=== PATIENT | female | born 1950 | race African-American/Black ===

== ENCOUNTER 2017-01-16 04:28 | Inpatient (IN) ==
--- NOTE | 2017-01-16 05:14 | Emergency Department Note ---
Arrival - Arrival Chief Complaint: GI Bleed/Rectal ED Nursing Triage Note: Pt arrives via ems from home with complaints of GI Bleed that started at 0300 this morning. Pt states that she got up to have a bowel movement and noticed bright red blood. Pt complains of lower abd pain prior to being given Normal Saline while en route to ed. Pt has history of Gastric ulcer. Mode of Arrival: Stretcher Time Seen by Provider: 01/16/17 04:47 - History of Present Illness HPI Narrative: This is a 66-year-old female of descent with a history of nonischemic cardiomyopathy peptic ulcer disease with gastrointestinal bleeding who presents with bright red blood per rectum which she noticed when she went to the bathroom. Rectal examination reveals external hemorrhoids and stool cris mixed with elizabeth blood. The patient has some left lower quadrant pain but the abdominal exam is nonsurgical. Date of Last Menstrual Period: hyster Allergies/Adverse Reactions: Allergies Allergy/AdvReac Type Severity Reaction Status Date / Time No Known Allergies Allergy Verified 11/19/16 12:06 Home Medications: Home Medications Medication Instructions Recorded Confirmed Type Atorvastatin [Lipitor] 10 mg PO DAILY 11/17/16 01/16/17 History Carvedilol [Coreg] 12.5 mg PO BID 11/17/16 01/16/17 History Lisinopril 10 mg PO DAILY 11/17/16 01/16/17 History Omeprazole 20 mg PO DAILY 11/17/16 01/16/17 History metFORMIN [Glucophage] 1,000 mg PO BID W/MEALS 11/17/16 01/16/17 History raNITIdine HCl [Ranitidine HCl] 150 mg PO DAILY 11/17/16 01/16/17 History Multivitamin [Multivitamins] 1 each PO DAILY 11/19/16 01/16/17 History Review of System - Review of System Constitutional: Absent: fever, night sweats Eyes: Absent: redness, vision change Head/Ears/Nose/Throat: Absent: epistaxis, nasal drainage Respiratory: Absent: respiratory distress, wheezing Cardiovascular: Absent: dyspnea on exertion, orthopnea, edema Gastrointestinal: Present: abdominal pain, melena. Absent: nausea, vomiting, constipation, hematemesis Genitourinary female: Absent: dysuria, frequency Musculoskeletal: Absent: joint swelling, lower back pain, leg pain, neck pain Skin: Absent: change in color, pruritus Neurological: Absent: numbness, paresthesias, confusion Psychiatric: Absent: anxiety, depression Endocrine: Absent: heat intolerance, polydipsia, polyuria Hematological/Lymphatic: Absent: easy bruising, lymphadenopathy Allergic/Immunologic: Absent: urticaria, itchy eyes Medical,Surgical,& Family Hx - Medical History Cardio: History of: Hypertension Neurology: No history of: Seizures Endocrine: History of: Diabetes Mellitus (NIDDM), Dyslipidemia Gastrointestinal: History of: GERD, GI Problems (Gastric ulcer) - Surgical History Cardiac Surgeries: Sugical HX of: Cardiac Catheterization Reproductive Surgeries: Surgical HX of;: Hysterectomy - Social History Smoking Status: Never smoker Frequency of Alcohol Use: None Type of Drug Use: None Exam Vital Signs: Vital Signs Temperature 98.4 F 01/16/17 04:28 Pulse Rate 77 01/16/17 05:37 Respiratory Rate 17 01/16/17 05:37 Blood Pressure 119/67 01/16/17 05:37 O2 Sat by Pulse Oximetry 100 01/16/17 05:37 - General General appearance: alert - Eye Eye exam: Present: PERRL, EOMI - ENT ENT exam: Present: normal exam, normal oropharynx - Neck Neck exam: Present: normal inspection, full ROM - Chest Chest inspection: Present: normal inspection, symmetric chest wall rise - Respiratory Respiratory exam: Present: normal lung sounds bilaterally - Cardiovascular Cardiovascular exam: Present: regular rate, normal rhythm - Abdominal Exam Abdominal exam: Present: soft, normal bowel sounds - Rectal Exam Rectal exam: Present: heme (+) stool, bloody stool, hemorrhoids - Extremities Exam Extremities exam: Present: normal inspection, full ROM - Back Exam Back exam: Present: normal inspection, full ROM - Neurological Exam Neurological exam: Present: alert, oriented X3, CN II-XII intact - Psychiatric Psychiatric exam: Present: normal affect, normal mood - Skin Skin exam: Present: warm, dry Course Course Narrative: The patient's hemoglobin dropped from 11 to 8 and she has a history of peptic ulcer disease with bleeding. Therefore it seems reasonable that she should be admitted to the hospital for monitoring her hemoglobin and hematocrit. The case was discussed with the hospitalist who agreed to admit the patient. Results - Labs CBC & BMP: 01/16/17 04:44 01/16/17 04:44 Disposition Clinical Impression: GI bleed Disposition: Still a Patient Additional Instructions: The patient's hemoglobin dropped from 11-8 and has a history of gastric ulcers with bleeding therefore it seems reasonable patient should be admitted to the hospital for monitoring of her hemoglobin and hematocrit. The case was discussed with hospitalist who agreed to admit the patient.
[2017-01-16 05:21] LABS: Basophils % 0.2 % (0.0-0.8); Eosinophils # 0.1 10*3/uL (0.0-0.87); Eosinophils % 0.6 % (0.00-10.9); Hematocrit 28.9 VOL% (35.7-47.0); Hemoglobin 8.9 GM/DL (12.0-16.0); Immature Granulocytes % 0.5 %; Immature Granulocytes Absolute 0.09 #; Mean Corpuscular HGB Conc 30.8 GM/DL (32-36); Mean Corpuscular Hemoglobin 24 PG (27-34); Mean Corpuscular Volume 77.7 FL (87-102); Mean Platelet Volume 9.9 FL (9.6-12.0); Monocytes % 5.9 % (1.7-12.7); Neutrophils # 14.7 10*3/uL (1.4-7.4); Neutrophils % 86.8 % (38.7-73.9); Platelet Count 264 T/CUMM (130-400); Red Blood Count 3.72 MC/CUMM (3.8-5.5); Red Cell Distribution Width 17.9 % (9.3-17.3)
[2017-01-16 05:47] LABS: Albumin 2.9 G/DL (3.4-5.0); Bilirubin,Total 1.6 MG/DL (0.2-1.0); Calcium 8.3 MG/DL (8.5-10.1); Osmolality,Calculated 292.3 MOS/KG (273-304); Potassium 4.4 MMOL/L (3.5-5.1)
--- NOTE | 2017-01-16 06:28 | Hospitalist History & Physical ---
History of Present Illness Chief complaint: bloody bowel movement History of present illness: Ms. Victor is a 66 year old female with PMH significant for PUD, DM, GERD, HTN , dyslipidemia, and NICM ([facility]: 11/19/16: non obstructive CAD). She presents to the ER with complaints of a bloody bowel movement she had early this morning. She states that she woke up with periumbilical pain and had to have a bowel movement. She noted the blood. She also experienced some lightheadness after having the bowel movement. Bowel movement was normal. She has been having normal bowel movements. After defecation, the abdominal pain went away. She states that she had similar bleeding in 2014 and it was 2nd to gastric ulcers. She sees GI at [facility]. She does not recall the GI specialist's name. She denies any melena/NSAID use/SOB/CP/fevers/chills/n,v/weight loss. ER physician noted blood in the rectum. Home Medications Medication Instructions Recorded Confirmed Type Atorvastatin [Lipitor] 10 mg PO DAILY 11/17/16 01/16/17 History Carvedilol [Coreg] 12.5 mg PO BID 11/17/16 01/16/17 History Lisinopril 10 mg PO DAILY 11/17/16 01/16/17 History Omeprazole 20 mg PO DAILY 11/17/16 01/16/17 History metFORMIN [Glucophage] 1,000 mg PO BID W/MEALS 11/17/16 01/16/17 History raNITIdine HCl [Ranitidine HCl] 150 mg PO DAILY 11/17/16 01/16/17 History Multivitamin [Multivitamins] 1 each PO DAILY 11/19/16 01/16/17 History Allergies Allergy/AdvReac Type Severity Reaction Status Date / Time No Known Allergies Allergy Verified 11/19/16 12:06 Medical,Surgical,& Family Hx - Medical History Cardio: History of: Hypertension Neurology: No history of: Seizures Endocrine: History of: Diabetes Mellitus (NIDDM), Dyslipidemia Gastrointestinal: History of: GERD, GI Problems (Gastric ulcer) - Surgical History Cardiac Surgeries: Sugical HX of: Cardiac Catheterization Reproductive Surgeries: Surgical HX of;: Hysterectomy - Family History Family History: Reports;: Family Cancer, Family Diabetes, Family Heart Disease, Family Hypertension - Social History Smoking Status: Never smoker Frequency of Alcohol Use: None Type of Drug Use: None - EENT Nose, mouth and throat: Absent: dysphagia - Cardiovascular Cardiovascular: Present: lightheadedness. Absent: chest pain at rest, chest pain with activity, dyspnea, palpitations - Respiratory Respiratory: Absent: cough, hemoptysis - Gastrointestinal Gastrointestinal: Present: abdominal pain, hematochezia. Absent: coffee ground emesis, dyspepsia, dysphagia, hematemesis, melena, nausea, vomiting - Neurological Neurological: Absent: abnormal gait, abnormal speech, headache(s) Exam - Constitutional Vitals: Period Temp Pulse Resp BP Sys/Mancilla Pulse Ox Last 24 Hr 98.4 F-98.4 F 77-85 17-22 119-135/67-82 96-100 General appearance: no acute distress, over weight - Head Head exam: Present: normal inspection, normocephalic - Eye Eye exam: Present: EOMI. Absent: conjunctival injection, scleral icterus Pupils: Present: DIAMOND - Respiratory Respiratory exam: Present: clear to auscultation bilaterally. Absent: rales, rhonchi, wheezes - Cardiovascular Cardiovascular exam: Present: regular rate and rhythm. Absent: diastolic murmur , systolic murmur - GI/Abdominal GI/Abdominal exam: Present: normal bowel sounds, soft, other (rectal exam deferred; ER physician noted blood in the rectum). Absent: distended, guarding , tenderness, rebound - Extremities Exam Extremities exam: Absent: edema - Neurological Exam Neurological exam: Present: alert, oriented X3 - Psychiatric Psychiatric exam: Present: normal affect, normal mood Results - Labs CBC & BMP: 01/16/17 04:44 01/16/17 04:44 - Impressions Patient is a 66 yo female who presents with BRBPR. Active Issues: 1. Acute hematochezia 2. GIB, suspect diverticular bleed 3. Acute blood loss anemia: her current HCT is 29. Back in 11/14/16, it was 35. 4. Microcytosis: suspect iron deficiency 5. Leukocytosis: likely 2nd to stress reaction. She has no fevers and no known source of infection 6. Comorbid conditions: history of DM, NICM, dyslipidemia, PUD. Patient is euvolemic Plan: admit; obtain iron studies; obtain PT/PTT; transfuse if hb<7 or <8 and symptomatic; PPI; serial h/h; consult GI; monitor wbc; obtain hba1c; control sugars; hold metformin and bp medications; await results of CTAP. Restart home medications as appropriate. Medications reconciled. DVT prophalaxis with SCDs. CODE: FULL The plan of care may be modified as more information becomes available. - Diagnostic Findings Procedure: CT Abdomen and Pelvis: pending
[2017-01-16] MEDS ORDERED: GLUCAGON 1 MG VIAL IM PRN (06:48)
[2017-01-16] MEDS ORDERED: DEXTROSE 50% 25 GM/50 ML VIAL IV PRN (06:48)
[2017-01-16 07:01] LABS: INR 1.1; PT Patient Result 11.8 SECS; Partial Thromboplastin Time 22.8 SECS (0-40)
[2017-01-16 07:10] LABS: % Iron Saturation 9.8 % (18-50); Ferritin 7.7 ng/ml (8-252)
[2017-01-16] MEDS: SODIUM CHLORIDE 0.9% 1,000 ML IV SCH ×2 (08:17→18:42)
[2017-01-16] MEDS: PANTOPRAZOLE 40 MG VIAL IV SCH ×2 (08:19→09:11)
[2017-01-16] MEDS ORDERED: INFLUENZA VIRUS VACCINE 0.5 ML SYRINGE IM ONE (08:29)
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
--- NOTE | 2017-01-16 10:04 | Event Note ---
Patient seen and examined in ICU 111. 66-year-old -[place] female with history of nonischemic cardiomyopathy, peptic ulcer disease, diabetes, admitted with left lower quadrant abdominal pain leukocytosis and rectal bleed. CT scan of the abdomen suggestive of acute diverticulitis. She is being started on IV Zosyn. GI has been consulted, will follow the recommendations. Will check a hemoglobin A1c as well as 2D echocardiogram. She is hemodynamically stable, will transfer to the floor. Plan of care discussed with the patient and RN. See orders.
--- NOTE | 2017-01-16 10:32 | Gastrointestinal Consult Note ---
<Albina Hi - Last Filed: 01/16/17 10:29> Assessment and Plan (1) GI bleed Status: Acute Assessment and plan: 01/16-sudden onset of bright red rectal bleeding early this morning without abdominal pain or other associated symptoms. Prior reported history of a patient of ulcers in the past 2-3 years with a GI bleed during that time. No NSAID or anticoagulant use. H&H holding at present time. CT of abdomen findings noted as below. Continue to monitor serial H&H. Clear liquid diet. Obtain records from [place] for prior endoscopy. Plan an addendum to follow Dr. Steinberg. Current Visit: Yes History of Present Illness Chief complaint: GI bleed History of present illness: Ms. Victor is a 66 year old female who was admitted to the hospital early this morning and after onset of rectal bleeding. Patient is a good historian therefore information is obtained from patient interview. Patient states she was in her usual state of health until 230 this morning when she woke up with the urge to have a bowel movement. She states she went to the bathroom and had a bowel movement however she noticed after this that she had a moderate amount of bright red blood in the commode however she denies passing any clots with this. Patient states that she became worried and came to the emergency room for further evaluation. Patient states that she has a history of rectal bleeding in 2013 as well as in 2014. She states she underwent upper and lower endoscopy at that time and was told that she had "ulcers". She cannot recall other findings of her endoscopy at that time. Patient states that she has not had any recent weight loss or abdominal pain. She denies any epigastric pain, dysphagia, dyspepsia. She does have a history of GERD and states this is fairly well controlled with Prilosec and Zantac. She also states she does have bloating when she eats however she has had this for a long time. Patient denies any NSAID use. She has not had any further rectal bleeding since 230 this morning. She denies any melena, nausea or vomiting associated with this. She has had have a blood transfusion in the past related to a GI bleed however has not had any since 2014. She states she has been on iron in the past due to iron deficiency anemia. Iron studies noted show iron 29, TIBC 295, saturation 9.8, ferritin 7.7. WBCs on admission noted at 17,000 however she is afebrile. H&H is stable at this time at 12/08. She has not received a blood transfusion since admission. CT of abdomen with IV contrast shows colonic diverticulosis with subtle fat stranding and sigmoid colon with questionable mild diverticulitis with mild wall thickening. Home Medications Medication Instructions Recorded Confirmed Type Atorvastatin [Lipitor] 10 mg PO DAILY 11/17/16 01/16/17 History Carvedilol [Coreg] 12.5 mg PO BID 11/17/16 01/16/17 History Lisinopril 10 mg PO DAILY 11/17/16 01/16/17 History Omeprazole 20 mg PO DAILY 11/17/16 01/16/17 History metFORMIN [Glucophage] 1,000 mg PO BID W/MEALS 11/17/16 01/16/17 History raNITIdine HCl [Ranitidine HCl] 150 mg PO DAILY 11/17/16 01/16/17 History Multivitamin [Multivitamins] 1 each PO DAILY 11/19/16 01/16/17 History Allergies Allergy/AdvReac Type Severity Reaction Status Date / Time No Known Allergies Allergy Verified 11/19/16 12:06 Medical,Surgical,& Family Hx - Medical History Cardio: History of: Hypertension Neurology: No history of: Seizures Endocrine: History of: Diabetes Mellitus (NIDDM), Dyslipidemia Gastrointestinal: History of: GERD, GI Problems (Gastric ulcer) - Surgical History Cardiac Surgeries: Sugical HX of: Cardiac Catheterization Reproductive Surgeries: Surgical HX of;: Hysterectomy - Family History Family History: Reports;: Family Cancer, Family Diabetes, Family Heart Disease, Family Hypertension - Social History Smoking Status: Never smoker Frequency of Alcohol Use: None Type of Drug Use: None 12 point system: reviewed and no additional remarkable complaints except as stated - Constitutional Constitutional: Present: as per HPI - EENT Eyes: Present: as per HPI Ears: Present: as per HPI Nose, mouth and throat: Present: as per HPI - Cardiovascular Cardiovascular: Present: as per HPI - Respiratory Respiratory: Present: as per HPI - Gastrointestinal Gastrointestinal: Present: as per HPI, abdominal pain, hematochezia - Genitourinary Genitourinary: Present: as per HPI - Musculoskeletal Musculoskeletal: Present: as per HPI - Neurological Neurological: Present: as per HPI - Psychiatric Psychiatric: Present: as per HPI - Endocrine Endocrine: Present: as per HPI - Hematologic/Lymphatic Hematologic/Lymphatic: Present: as per HPI Exam - Constitutional Vitals: Period Temp Pulse Resp BP Sys/Mancilla Pulse Ox Last 24 Hr 98.4 F-98.4 F 76-85 17-22 117-135/67-83 96-100 General appearance: normal weight, no acute distress - Head Head exam: Present: normal inspection, normocephalic - Eye Eye exam: Present: other (Lids and conjunctive are unremarkable). Absent: scleral icterus - ENT ENT exam: Present: normal exam, normal oropharynx - Neck Neck exam: Present: normal inspection - Respiratory Respiratory exam: Present: clear to auscultation bilaterally. Absent: rales, rhonchi, wheezes - Cardiovascular Cardiovascular exam: Present: regular rate and rhythm. Absent: diastolic murmur , JVD, systolic murmur - GI/Abdominal GI/Abdominal exam: Present: normal bowel sounds, soft. Absent: ascites, distended, mass, organomegaly, tenderness - Extremities Exam Extremities exam: Present: normal inspection, full ROM - Back Exam Back exam: Present: normal inspection - Neurological Exam Neurological exam: Present: alert, oriented X3 - Psychiatric Psychiatric exam: Present: normal affect, normal mood - Skin Skin exam: Present: normal color, warm, dry Results - Labs CBC & BMP: 01/16/17 04:44 01/16/17 04:44 Lab Results: I have reviewed the past 24 hour labs Quality Measures - VTE Contraindication to Pharmacological VTE Prophylaxis: Active Bleeding <Azael Steinberg - Last Filed: 01/16/17 15:56> History of Present Illness History of present illness: Ms. Victor is a 66 year old female Exam - Constitutional Vitals: Period Temp Pulse Resp BP Sys/Mancilla Pulse Ox Last 24 Hr 98 F-98.4 F 76-88 13-22 117-171/67-96 96-100 Results - Labs CBC & BMP: 01/16/17 04:44 01/16/17 04:44
[2017-01-16] MEDS ORDERED: PIPERACILLIN/TAZOBACTAM 3,375 MG in SODIUM CHLORIDE 0.9% 100 ML IV SCH (11:00)
[2017-01-16] MEDS: INSULIN LISPRO 100 UNIT/ML SUBCUT SCH ×2 (12:20→18:43)
[2017-01-16] MEDS: PIPERACILLIN/TAZOBACTAM 3,375 MG in SODIUM CHLORIDE 0.9% 100 ML IV SCH ×2 (12:20→20:24)
--- NOTE | 2017-01-16 19:39 | DUMMY REPORT TO COMPLETE ORDER ---
See report scanned to EMR
[2017-01-17] MEDS: INSULIN LISPRO 100 UNIT/ML SUBCUT SCH ×2 (01:18→06:56)
[2017-01-17] MEDS: SODIUM CHLORIDE 0.9% 1,000 ML IV SCH (04:05)
[2017-01-17] MEDS: PIPERACILLIN/TAZOBACTAM 3,375 MG in SODIUM CHLORIDE 0.9% 100 ML IV SCH ×3 (04:36→20:39)
[2017-01-17 05:12] LABS: Albumin 2.6 G/DL (3.4-5.0); Bilirubin,Total 1.3 MG/DL (0.2-1.0); Calcium 8.5 MG/DL (8.5-10.1); Magnesium 1.8 MG/DL (1.8-2.4); Osmolality,Calculated 286.7 MOS/KG (273-304); Potassium 4.2 MMOL/L (3.5-5.1); Thyroid Stimulating Hormone 0.283 uIU/ml (0.358-3.74); Total Protein 5.1 G/DL (6.4-8.3)
[2017-01-17 06:48] LABS: Basophils % 0.1 % (0.0-0.8); Eosinophils # 0.1 10*3/uL (0.0-0.87); Eosinophils % 0.7 % (0.00-10.9); Hematocrit 22.9 VOL% (35.7-47.0); Immature Granulocytes % 0.4 %; Immature Granulocytes Absolute 0.04 #; Lymphocytes # 2.4 10*3/uL (1.4-4.0); Lymphocytes % 25.6 % (21.3-54.2); Mean Corpuscular Hemoglobin 24 PG (27-34); Mean Corpuscular Volume 76.6 FL (87-102); Mean Platelet Volume 9.8 FL (9.6-12.0); Monocytes # 1.1 10*3/uL (0.11-0.8); Monocytes % 11.5 % (1.7-12.7); Neutrophils # 5.8 10*3/uL (1.4-7.4); Neutrophils % 61.7 % (38.7-73.9); Platelet Count 212 T/CUMM (130-400); Red Blood Count 2.99 MC/CUMM (3.8-5.5); Red Cell Distribution Width 18.4 % (9.3-17.3)
[2017-01-17 06:57] LABS: Hemoglobin 7.1 GM/DL (12.0-16.0); White Blood Count 9.4 T/CUMM (4-12)
[2017-01-17] MEDS ORDERED: SODIUM CHLORIDE 0.9% 250 ML IV PRN (08:23)
[2017-01-17] MEDS: PANTOPRAZOLE 40 MG VIAL IV SCH (08:51)
[2017-01-17] MEDS ORDERED: GLUCAGON 1 MG VIAL IM PRN (09:14)
[2017-01-17] MEDS ORDERED: DEXTROSE 50% 25 GM/50 ML VIAL IV PRN (09:14)
--- NOTE | 2017-01-17 09:44 | Hospitalist Progress Note ---
Assessment and Plan (1) Diverticulitis Status: Acute Assessment and plan: CT abdomen and pelvis noted changes consistent with diverticulitis. GI consultation on yesterday. We will continue intravenous antibiotics, protein pump inhibitors, and gentle rehydration. The patient is not a candidate for colonoscopy at this time due to the severity of her presenting symptoms. We appreciate the input from gastroenterology. We will monitor closely during the clinical encounter. Current Visit: Yes (2) Non-insulin dependent type 2 diabetes mellitus Status: Acute Assessment and plan: Hemoglobin A1c noted at 9.2. Spoke with patient in great detail regarding lab results and the need for dietary modifications. We will start Accu-Cheks with sliding scale coverage at this time. We will increase metformin at the time of discharge. Current Visit: Yes (3) GI bleed Status: Acute Assessment and plan: No further episodes of rectal bleeding noted. We will continue empiric antibiotics, gentle rehydration, and protein pump inhibitors as previously ordered. Current Visit: Yes Hospitalist: Subjective Interval history: Patient seen and examined; chart reviewed. No significant overnight events reported per staff. Transferred from ICU on yesterday. Hemoglobin/hematocrit noted at 7.1/22.9. Exam - Constitutional Vitals: Period Temp Pulse Resp BP Sys/Mancilla Pulse Ox Last 24 Hr 98 F-98.7 F 79-95 16-20 111-160/55-76 91-99 General appearance: normal weight, no acute distress - Head Head exam: Present: normal inspection, normocephalic, atraumatic - Eye Eye exam: Present: EOMI. Absent: conjunctival injection Pupils: Present: DIAMOND, normal accommodation - ENT ENT exam: Present: normal exam, normal external ear exam, normal oropharynx - Neck Neck exam: Present: normal inspection. Absent: lymphadenopathy, meningismus, tenderness, thyromegaly - Respiratory Respiratory exam: Present: clear to auscultation bilaterally. Absent: rales, rhonchi, stridor, wheezes - Cardiovascular Cardiovascular exam: Present: regular rate and rhythm. Absent: carotid bruit, diastolic murmur, gallop, JVD, rubs, systolic murmur - GI/Abdominal GI/Abdominal exam: Present: normal bowel sounds, tenderness (Diffuse left lower quadrant tenderness), soft - Extremities Exam Extremities exam: Present: normal inspection, normal capillary refill, full ROM. Absent: edema - Back Exam Back exam: Present: normal inspection - Neurological Exam Neurological exam: Present: alert, oriented X3, CN II-XII intact - Psychiatric Psychiatric exam: Present: normal affect, normal mood - Skin Skin exam: Present: normal color, warm, dry Results - Labs CBC & BMP: 01/17/17 06:22 01/17/17 03:05 Lab Results: I have reviewed the past 24 hour labs Quality Measures - VTE Contraindication to Pharmacological VTE Prophylaxis: Active Bleeding
[2017-01-17] MEDS: INSULIN REGULAR 100 UNIT/ML SUBCUT SCH ×3 (12:07→20:38)
[2017-01-17] MEDS: metFORMIN 500 MG TABLET PO SCH (17:29)
[2017-01-17] MEDS: CARVEDILOL 12.5 MG TABLET PO SCH (20:39)
[2017-01-18 06:28] LABS: Basophils % 0.4 % (0.0-0.8); Eosinophils # 0.2 10*3/uL (0.0-0.87); Eosinophils % 2.6 % (0.00-10.9); Hematocrit 30.4 VOL% (35.7-47.0); Hemoglobin 9.8 GM/DL (12.0-16.0); Immature Granulocytes % 1.2 %; Immature Granulocytes Absolute 0.09 #; Lymphocytes # 2.1 10*3/uL (1.4-4.0); Mean Corpuscular HGB Conc 32.2 GM/DL (32-36); Mean Corpuscular Hemoglobin 26 PG (27-34); Mean Corpuscular Volume 79.4 FL (87-102); Monocytes % 12.8 % (1.7-12.7); NRBC # 0.02 10*3/uL; Neutrophils # 4.3 10*3/uL (1.4-7.4); Platelet Count 219 T/CUMM (130-400); Red Blood Count 3.83 MC/CUMM (3.8-5.5); White Blood Count 7.7 T/CUMM (4-12)
[2017-01-18] MEDS: PIPERACILLIN/TAZOBACTAM 3,375 MG in SODIUM CHLORIDE 0.9% 100 ML IV SCH (06:35)
[2017-01-18 07:10] LABS: Albumin 2.9 G/DL (3.4-5.0); Bilirubin,Total 1.4 MG/DL (0.2-1.0); Calcium 8.6 MG/DL (8.5-10.1); Magnesium 1.8 MG/DL (1.8-2.4); Osmolality,Calculated 288.7 MOS/KG (273-304); Phosphorous 3.5 MG/DL (2.5-4.9); Total Protein 5.8 G/DL (6.4-8.3)
[2017-01-18] MEDS: CARVEDILOL 12.5 MG TABLET PO SCH (08:23)
[2017-01-18] MEDS: PANTOPRAZOLE 40 MG VIAL IV SCH (08:23)
[2017-01-18] MEDS: metFORMIN 500 MG TABLET PO SCH (08:23)
[2017-01-18] MEDS: INSULIN REGULAR 100 UNIT/ML SUBCUT SCH ×2 (08:24→12:25)
[2017-01-18] MEDS ORDERED: MULTIVITAMIN (CENTRUM) TABLET PO SCH (09:00)
[2017-01-18] MEDS ORDERED: LISINOPRIL 10 MG TABLET PO SCH (09:00)
--- NOTE | 2017-01-18 11:40 | Discharge Summary ---
<Anshu Ruiz - Last Filed: 01/18/17 11:38> Hospital Course - Hospital Course Hospital Course: This is a very pleasant 66-year-old female that presented to the ED at [facility] on the morning of January 16, 2017 for the evaluation of rectal bleeding. Patient has a medical history significant for hypertension, [id number] diabetes mellitus, nonischemic cardiomyopathy, dyslipidemia, gastroesophageal reflux disease, and peptic ulcer disease. The patient has a surgical history significant for cardiac catheterization and hysterectomy. The patient reported the onset of symptoms on the morning of presentation. The patient reported that she awaken with umbilical pain and had to have a bowel movement. She proceeded to get up and go to the bathroom and noticed bright red blood during defecation. In addition, she reported that she experience some lightheadedness shortly there after the bowel movement. She also reported that she experienced relief of abdominal pain shortly after defecation; however denied shortness of breath, chest pain, fever, chills, nausea vomiting, weight loss, and recent NSAID use. She reports an episode similar in nature in 2014 however it was attributed to gastric ulcers. She became alarmed after the incident prompting her to present to the ED at [facility] for further evaluation. The patient was assessed at the time of ED presentation. Labs were obtained which were significant for white blood cell count 17.0, hemoglobin 8.9, hematocrit 28.9, chloride 109, glucose 333, calcium 8.3, iron 29, percentage saturation 9.8, ferritin 7.7, total bilirubin 1.60, and hemoglobin A1c 9.2. CT abdomen and pelvis with contrast significant for colonic diverticulosis, septal fat stranding about the sigmoid colon which could possibly reflect mild diverticulitis, mild associated wall thickening. The patient was subsequently admitted to the hospitalist service for continuation of care. Due to the severity of the patient's presenting symptoms and comorbidities, the patient was placed in the critical care setting for observation. Gentle rehydration, protein pump inhibitors, pain management, DVT prophylaxis, and empiric antibiotics were initiated. A gastroenterology consultation was requested and evaluations were given. Empiric antibiotic coverage continued per gastroenterology recommendation. On January 17, 2017, the patient's hemoglobin and hematocrit was noted at 7.1/22.9. The patient was transfused 2 units packed red blood cells in the patient's hemoglobin and hematocrit improved and is noted at 9.8/30.4 today. The patient's condition gradually improved. The patient's condition is stable. She has experienced no significant overnight events. Today, we feel that she is indeed appropriate for discharge to follow with her primary care physician and electrician helper, Dr. Azael Steinberg as directed. The patient will be discharged home with instructions to start Flagyl 500 mg 3 times daily, Cipro 500 mg twice daily, ferrous sulfate 325 twice daily, and Colace 200 mg twice daily. I evaluated this patient and completed an independent history and physical examination. I coordinated care with JOSE DAVID Ramos. I agree with the documentation that she provides below. Patient seen and examined. No acute events overnight. Case discussed with nursing staff. Labs reviewed. Total discharge time for this patient, including dikc-[id number] time, clinical documentation, medication reconciliation, and discharge planning was 42 minutes. - Time spent with patient Time with patient DS: Less than 30 minutes Diagnosis - Discharge Diagnosis (1) Diverticulitis Status: Acute (2) Non-insulin dependent type 2 diabetes mellitus Status: Chronic (3) GI bleed Status: Resolved Specialty Discharge - Follow Up or Referrals - Speciality Discharge Instructions Hospitalist Instructions: Follow-up with primary care physician in 7-10 days after discharge. Follow with gastroenterology, Dr. Azael Steinberg in 3-4 weeks for diagnostic colonoscopy. Discharge Plan - Discharge Data Disposition: Disch To Home/Self Care Condition at Discharge: Stable Discharge Diet: advance to your usual diet Activity: resume usual activities as tolerated Hygiene: no restrictions Weight Bearing at Discharge: full weight bearing Driving: no restrictions Contact your physician if you experience:: fever over 101, Difficulty voiding, Redness or swelling, Nausea/Vomiting, Shortness of breath, Bleeding - Discharge Medications New metroNIDAZOLE TAB [Flagyl Cap/Tab] 500 mg PO TID #42 tablet Ferrous Sulfate 325 mg PO BID #60 tablet Ciprofloxacin Tab [Cipro Tab] 500 mg PO BID #28 tablet Docusate Sodium [Colace] 200 mg PO BID #60 capsule Continue Atorvastatin [Lipitor] 10 mg PO DAILY #30 Lisinopril 10 mg PO DAILY #30 Omeprazole 20 mg PO DAILY #30 raNITIdine HCl [Ranitidine HCl] 150 mg PO DAILY #30 Multivitamin [Multivitamins] 1 each PO DAILY Carvedilol [Coreg] 12.5 mg PO BID #60 Changed metFORMIN [Glucophage] 1,500 mg PO BID W/MEALS #90 - Follow Up or Referral - Forms/Instructions Exam - Constitutional Vitals: Period Temp Pulse Resp BP Sys/[place] Pulse Ox Last 24 Hr 98.0 F-99.0 F 73-92 16-21 131-163/59-87 94-99 General appearance: normal weight, no acute distress - Head Head exam: Present: normal inspection, normocephalic, atraumatic - Eye Eye exam: Present: EOMI. Absent: conjunctival injection Pupils: Present: DIAMOND, normal accommodation - ENT ENT exam: Present: normal exam, normal external ear exam, normal oropharynx - Neck Neck exam: Present: normal inspection. Absent: lymphadenopathy, meningismus, thyromegaly - Respiratory Respiratory exam: Present: clear to auscultation bilaterally. Absent: rales, rhonchi, stridor, wheezes - Cardiovascular Cardiovascular exam: Present: regular rate and rhythm. Absent: carotid bruit, diastolic murmur, gallop, JVD, rubs, systolic murmur - GI/Abdominal GI/Abdominal exam: Present: normal bowel sounds, soft - Extremities Exam Extremities exam: Present: normal inspection, normal capillary refill, full ROM. Absent: edema - Back Exam Back exam: Present: normal inspection - Neurological Exam Neurological exam: Present: alert, oriented X3, CN II-XII intact - Psychiatric Psychiatric exam: Present: normal affect, normal mood - Skin Skin exam: Present: normal color, warm, dry Discharge Results Labs on day of discharge: Labs from last 24 hours 01/18/17 01/18/17 01/18/17 11:34 06:46 05:51 WBC RBC Hgb Hct MCV MCH MCHC RDW Plt Count MPV Neut % (Auto) Lymph % (Auto) [place] % (Auto) Eos % (Auto) Baso % (Auto) Neut # (Auto) Lymph # (Auto) [place] # (Auto) Eos # (Auto) Baso # (Auto) Immature Gran % Nucleated RBC % Immature Gran # Nucleated RBCs # Immature Plt Fraction Sodium 145 Potassium 4.0 Chloride 111 H Carbon Dioxide 26 Anion Gap 12.0 BUN 5 L Creatinine 0.90 GFR Calculation 89 BUN/Creatinine Ratio 5.00 L Glucose 171 H POC Glucose 177 H 193 H Calculated Osmolality 288.7 Calcium 8.6 Phosphorus 3.5 Magnesium 1.8 Total Bilirubin 1.40 H AST 9 ALT 16 Alkaline Phosphatase 78 Total Protein 5.8 L Albumin 2.9 L Globulin 2.9 Albumin/Globulin Ratio 1.0 L Blood Type Antibody Screen Crossmatch Blood Bank Comment 01/18/17 01/17/17 01/17/17 05:51 20:18 17:41 WBC 7.7 RBC 3.83 D Hgb 9.8 L D Hct 30.4 L MCV 79.4 L MCH 26 L MCHC 32.2 RDW 18.0 H Plt Count 219 MPV 10.0 Neut % (Auto) 56.0 Lymph % (Auto) 27.0 [place] % (Auto) 12.8 H Eos % (Auto) 2.6 Baso % (Auto) 0.4 Neut # (Auto) 4.3 Lymph # (Auto) 2.1 [place] # (Auto) 1.0 H Eos # (Auto) 0.2 Baso # (Auto) 0.0 Immature Gran % 1.2 Nucleated RBC % 0.3 Immature Gran # 0.09 Nucleated RBCs # 0.02 Immature Plt Fraction 0.0 Sodium Potassium Chloride Carbon Dioxide Anion Gap BUN Creatinine GFR Calculation BUN/Creatinine Ratio Glucose POC Glucose 146 H 166 H Calculated Osmolality Calcium Phosphorus Magnesium Total Bilirubin AST ALT Alkaline Phosphatase Total Protein Albumin Globulin Albumin/Globulin Ratio Blood Type Antibody Screen Crossmatch Blood Bank Comment 01/17/17 06:19 WBC RBC Hgb Hct MCV MCH MCHC RDW Plt Count MPV Neut % (Auto) Lymph % (Auto) [place] % (Auto) Eos % (Auto) Baso % (Auto) Neut # (Auto) Lymph # (Auto) [place] # (Auto) Eos # (Auto) Baso # (Auto) Immature Gran % Nucleated RBC % Immature Gran # Nucleated RBCs # Immature Plt Fraction Sodium Potassium Chloride Carbon Dioxide Anion Gap BUN Creatinine GFR Calculation BUN/Creatinine Ratio Glucose POC Glucose Calculated Osmolality Calcium Phosphorus Magnesium Total Bilirubin AST ALT Alkaline Phosphatase Total Protein Albumin Globulin Albumin/Globulin Ratio Blood Type Cancelled Antibody Screen Cancelled Crossmatch See Detail Blood Bank Comment Cancelled DS: Provider Date of admission: 01/16/17 06:43 Primary care physician: Mavis Cantu Attending physician on admission: Adamaris Thomas MD Consults: 01/16/17 06:49 Consult to Physician [CONS] Routine Comment: GIB Consulting Provider: Azael Steinberg Consulting Provider Notified: Yes When should Consulting Provider be notified: In am Consult to Specialist Group: Gastroenterology Person Notified: SHERRON Date Notified: 01/16/17 Consult Notification Comment: ALREADY SEEN PT THIS AM 01/16/17 08:15 Consult to Dietitian [CONS] Routine Reason for Dietitian: Other Discharging clinician: Anshu Ruiz CNP <Les Andrews - Last Filed: 01/18/17 12:17> Hospital Course - Time spent with patient Time with patient DS: Greater than 30 minutes Diagnosis - Discharge Diagnosis (1) Hypertension Status: Chronic (2) GI bleed Status: Resolved (3) Diverticulitis Status: Acute (4) Non-insulin dependent type 2 diabetes mellitus Status: Chronic Discharge Plan - Forms/Instructions Additional Discharge Instructions: Follow-up with primary care physician in 1 week DS: Provider Expected date of discharge: 01/18/17
[2017-01-18 11:48] VITALS: BP 135/77
== END 2017-01-18 13:50 | disposition home or self-care (01) | DRG 378 ==
LOC: EDUNIT# → EDBD → N.ED 04:28 → N.ICU 06:43 → SUATTDRO 06:43 → N.ICU 07:13 → N.5E 18:25
PROVIDERS: ADMIT Hospitalist; ATTEND Family Medicine

== ENCOUNTER 2017-06-24 21:34 | Inpatient (IN) ==
[2017-06-24] MEDS ORDERED: PANTOPRAZOLE 40 MG VIAL IV STA (22:27)
[2017-06-24 23:04] LABS: Basophils % 0.1 % (0.0-0.8); Eosinophils # 0.1 10*3/uL (0.0-0.87); Eosinophils % 0.6 % (0.00-10.9); Hemoglobin 9.8 GM/DL (12.0-16.0); Immature Granulocytes % 0.5 %; Immature Granulocytes Absolute 0.07 #; Lymphocytes # 1.4 10*3/uL (1.4-4.0); Lymphocytes % 9.5 % (21.3-54.2); Mean Corpuscular HGB Conc 31.6 GM/DL (32-36); Mean Corpuscular Hemoglobin 29 PG (27-34); Mean Corpuscular Volume 90.1 FL (87-102); Mean Platelet Volume 9.8 FL (9.6-12.0); Monocytes # 1.1 10*3/uL (0.11-0.8); Monocytes % 7.3 % (1.7-12.7); Neutrophils # 12.3 10*3/uL (1.4-7.4); Platelet Count 192 T/CUMM (130-400); Red Blood Count 3.44 MC/CUMM (3.8-5.5); Red Cell Distribution Width 17.1 % (9.3-17.3)
[2017-06-24 23:13] LABS: INR 1.2; PT Patient Result 12.3 SECS; Partial Thromboplastin Time 22.3 SECS (0-40)
[2017-06-24 23:26] LABS: Albumin 2.4 G/DL (3.4-5.0); Bilirubin,Total 0.8 MG/DL (0.2-1.0); Osmolality,Calculated 295.8 MOS/KG (273-304); Potassium 4.4 MMOL/L (3.5-5.1); Total Protein 4.9 G/DL (6.4-8.3); Troponin I Only 0.019 NG/ML (0.00-0.045)
[2017-06-24] MEDS ORDERED: SODIUM CHLORIDE 0.9% 1,000 ML IV PRN ×2 (23:32→23:35)
[2017-06-25] MEDS ORDERED: ALBUTEROL 2.5 MG/3 ML NEB RESP TX PRN (01:01)
[2017-06-25] MEDS ORDERED: ACETAMINOPHEN 325 MG TABLET PO PRN (01:01)
[2017-06-25] MEDS ORDERED: ONDANSETRON 4 MG/2 ML VIAL IV PRN (01:01)
[2017-06-25] MEDS ORDERED: SODIUM CHLORIDE 0.9% 1,000 ML IV PRN (01:09)
[2017-06-25] MEDS ORDERED: GLUCAGON 1 MG VIAL IM PRN (01:11)
[2017-06-25] MEDS ORDERED: DEXTROSE 50% 25 GM/50 ML VIAL IV PRN (01:11)
[2017-06-25] MEDS ORDERED: PANTOPRAZOLE 40 MG VIAL IV ONE (01:50)
[2017-06-25 05:21] LABS: Hematocrit 31.6 VOL% (35.7-47.0); Hemoglobin 10.3 GM/DL (12.0-16.0)
[2017-06-25 05:58] LABS: Calcium 7.9 MG/DL (8.5-10.1); Osmolality,Calculated 290.1 MOS/KG (273-304); Potassium 4.4 MMOL/L (3.5-5.1)
[2017-06-25] MEDS: PANTOPRAZOLE 40 MG VIAL IV SCH (09:25)
[2017-06-25 09:27] LABS: Hematocrit 30.6 VOL% (35.7-47.0); Hemoglobin 10.1 GM/DL (12.0-16.0)
[2017-06-25] MEDS: INSULIN REGULAR 100 UNIT/ML SUBCUT SCH ×4 (09:27→21:46)
[2017-06-25] MEDS: FAMOTIDINE 20 MG TABLET PO SCH ×2 (13:44→21:46)
[2017-06-25 15:14] LABS: Hematocrit 28.5 VOL% (35.7-47.0); Hemoglobin 9.5 GM/DL (12.0-16.0)
[2017-06-26 05:53] LABS: Hemoglobin 8.3 GM/DL (12.0-16.0)
[2017-06-26] MEDS: INSULIN REGULAR 100 UNIT/ML SUBCUT SCH ×2 (09:47→12:20)
[2017-06-26] MEDS: PANTOPRAZOLE 40 MG VIAL IV SCH (09:47)
[2017-06-26] MEDS: FAMOTIDINE 20 MG TABLET PO SCH (09:47)
[2017-06-26 12:54] VITALS: BP 143/67
== END 2017-06-26 14:40 | disposition home or self-care (01) | DRG 378 ==
LOC: N.ED 21:34 → N.EDINP 06-25 01:01 → N.CC 06-25 01:32 → N.TELEN 06-25 11:53
PROVIDERS: ADMIT Internal Medicine; ATTEND Internal Medicine

== ENCOUNTER 2017-06-29 11:04 | Inpatient (IN) ==
[2017-06-29] MEDS ORDERED: SODIUM CHLORIDE 0.9% 1,000 ML IV STA (11:44)
[2017-06-29] MEDS ORDERED: ONDANSETRON 4 MG/2 ML VIAL IV STA (11:44)
[2017-06-29] MEDS ORDERED: PANTOPRAZOLE 40 MG VIAL IV STA (11:44)
[2017-06-29] MEDS ORDERED: BISACODYL 5 MG TABLET PO ONE (12:00)
[2017-06-29 12:41] LABS: Basophils % 0.4 % (0.0-0.8); Eosinophils # 0.1 10*3/uL (0.0-0.87); Eosinophils % 1.3 % (0.00-10.9); Hematocrit 30.5 VOL% (35.7-47.0); Hemoglobin 9.5 GM/DL (12.0-16.0); Immature Granulocytes % 0.4 %; Immature Granulocytes Absolute 0.03 #; Lymphocytes # 1.2 10*3/uL (1.4-4.0); Lymphocytes % 15.5 % (21.3-54.2); Mean Corpuscular HGB Conc 31.1 GM/DL (32-36); Mean Corpuscular Hemoglobin 28 PG (27-34); Mean Corpuscular Volume 91.3 FL (87-102); Mean Platelet Volume 9.6 FL (9.6-12.0); Monocytes # 0.7 10*3/uL (0.11-0.8); Monocytes % 9.2 % (1.7-12.7); NRBC # 0.02 10*3/uL; Neutrophils # 5.6 10*3/uL (1.4-7.4); Neutrophils % 73.2 % (38.7-73.9); Platelet Count 256 T/CUMM (130-400); Red Blood Count 3.34 MC/CUMM (3.8-5.5); Red Cell Distribution Width 17.5 % (9.3-17.3); White Blood Count 7.6 T/CUMM (4-12)
[2017-06-29 12:50] LABS: INR 1.1; PT Patient Result 11.2 SECS; Partial Thromboplastin Time 22.9 SECS (0-40)
[2017-06-29] MEDS ORDERED: PANTOPRAZOLE 40 MG VIAL IV ONE (13:33)
[2017-06-29] MEDS ORDERED: ONDANSETRON 4 MG/2 ML VIAL ONE (13:33)
[2017-06-29 13:41] LABS: Albumin 3.3 G/DL (3.4-5.0); Bilirubin,Total 1.3 MG/DL (0.2-1.0); Calcium 8.4 MG/DL (8.5-10.1); Osmolality,Calculated 290.1 MOS/KG (273-304); Potassium 3.8 MMOL/L (3.5-5.1); Total Protein 6.1 G/DL (6.4-8.3)
[2017-06-29] MEDS ORDERED: MORPHINE 2 MG/1 ML SYRINGE IV PRN (14:59)
[2017-06-29] MEDS ORDERED: ACETAMINOPHEN 325 MG TABLET PO PRN (14:59)
[2017-06-29] MEDS ORDERED: ONDANSETRON 4 MG/2 ML VIAL IV PRN (14:59)
[2017-06-29] MEDS ORDERED: POLYETHYLENE GLYCOL POWDER 255 GM BOTTLE PO ONE (15:46)
[2017-06-29] MEDS: SODIUM CHLORIDE 0.9% 1,000 ML IV SCH (16:08)
[2017-06-29 21:01] LABS: Hematocrit 24.1 VOL% (35.7-47.0); Hemoglobin 7.5 GM/DL (12.0-16.0)
[2017-06-30] MEDS: SODIUM CHLORIDE 0.9% 1,000 ML IV SCH ×2 (02:08→13:28)
[2017-06-30 05:53] LABS: Basophils % 0.3 % (0.0-0.8); Eosinophils # 0.1 10*3/uL (0.0-0.87); Eosinophils % 1.4 % (0.00-10.9); Hematocrit 21.3 VOL% (35.7-47.0); Immature Granulocytes % 0.3 %; Immature Granulocytes Absolute 0.02 #; Lymphocytes # 2.2 10*3/uL (1.4-4.0); Lymphocytes % 31.6 % (21.3-54.2); Mean Corpuscular HGB Conc 31.9 GM/DL (32-36); Mean Corpuscular Hemoglobin 28 PG (27-34); Mean Corpuscular Volume 88.4 FL (87-102); Mean Platelet Volume 9.6 FL (9.6-12.0); Monocytes % 14.3 % (1.7-12.7); NRBC # 0.02 10*3/uL; Neutrophils # 3.6 10*3/uL (1.4-7.4); Neutrophils % 52.1 % (38.7-73.9); Red Cell Distribution Width 17.3 % (9.3-17.3)
[2017-06-30 05:58] LABS: Hemoglobin 6.8 GM/DL (12.0-16.0); Red Blood Count 2.41 MC/CUMM (3.8-5.5)
[2017-06-30 05:59] LABS: Platelet Count 197 T/CUMM (130-400)
[2017-06-30 06:13] LABS: Calcium 7.8 MG/DL (8.5-10.1); Osmolality,Calculated 285.7 MOS/KG (273-304); Potassium 3.5 MMOL/L (3.5-5.1); Risk Ratio 1.67; VLDL CHOLESTEROL 11.2 MG/DL
[2017-06-30 07:24] LABS: Hematocrit 22.1 VOL% (35.7-47.0); Hemoglobin 7.2 GM/DL (12.0-16.0)
[2017-06-30] MEDS ORDERED: SODIUM CHLORIDE 0.9% 1,000 ML IV PRN (07:43)
[2017-06-30] MEDS ORDERED: GLUCAGON 1 MG VIAL IM PRN (08:00)
[2017-06-30] MEDS ORDERED: DEXTROSE 50% 25 GM/50 ML VIAL IV PRN (08:00)
[2017-06-30] MEDS ORDERED: FUROSEMIDE 20 MG/2 ML VIAL IV PRN (08:07)
[2017-06-30] MEDS: FERROUS SULFATE 325 MG TABLET PO SCH ×2 (08:31→21:29)
[2017-06-30] MEDS: ATORVASTATIN 10 MG TABLET PO SCH (08:31)
[2017-06-30] MEDS: PANTOPRAZOLE 40 MG TABLET PO SCH (08:31)
[2017-06-30] MEDS: CARVEDILOL 12.5 MG TABLET PO SCH ×2 (08:31→15:59)
[2017-06-30] MEDS: LISINOPRIL 10 MG TABLET PO SCH (08:31)
[2017-06-30] MEDS: INSULIN REGULAR 100 UNIT/ML SUBCUT SCH ×3 (13:02→21:30)
[2017-06-30 13:24] LABS: Hematocrit 28.5 VOL% (35.7-47.0)
[2017-07-01 06:23] LABS: Basophils % 0.4 % (0.0-0.8); Eosinophils # 0.1 10*3/uL (0.0-0.87); Hematocrit 29.3 VOL% (35.7-47.0); Hemoglobin 9.9 GM/DL (12.0-16.0); Immature Granulocytes % 0.3 %; Immature Granulocytes Absolute 0.02 #; Lymphocytes # 1.5 10*3/uL (1.4-4.0); Lymphocytes % 21.5 % (21.3-54.2); Mean Corpuscular HGB Conc 33.8 GM/DL (32-36); Mean Corpuscular Hemoglobin 29 PG (27-34); Mean Corpuscular Volume 86.4 FL (87-102); Mean Platelet Volume 9.3 FL (9.6-12.0); Monocytes # 0.9 10*3/uL (0.11-0.8); Monocytes % 13.6 % (1.7-12.7); NRBC # 0.02 10*3/uL; Neutrophils # 4.2 10*3/uL (1.4-7.4); Neutrophils % 62.2 % (38.7-73.9); Platelet Count 189 T/CUMM (130-400); Red Blood Count 3.39 MC/CUMM (3.8-5.5); Red Cell Distribution Width 16.4 % (9.3-17.3); White Blood Count 6.8 T/CUMM (4-12)
[2017-07-01 06:52] LABS: Calcium 8.1 MG/DL (8.5-10.1); Osmolality,Calculated 285.7 MOS/KG (273-304); Potassium 3.2 MMOL/L (3.5-5.1)
[2017-07-01 06:56] LABS: Albumin 2.7 G/DL (3.4-5.0); Bilirubin,Total 1.4 MG/DL (0.2-1.0); Calcium 8.1 MG/DL (8.5-10.1); Osmolality,Calculated 285.7 MOS/KG (273-304); Potassium 3.2 MMOL/L (3.5-5.1); Total Protein 5.2 G/DL (6.4-8.3)
[2017-07-01] MEDS: ATORVASTATIN 10 MG TABLET PO SCH (09:43)
[2017-07-01] MEDS: CARVEDILOL 12.5 MG TABLET PO SCH (09:43)
[2017-07-01] MEDS: LISINOPRIL 10 MG TABLET PO SCH (09:44)
[2017-07-01] MEDS: FERROUS SULFATE 325 MG TABLET PO SCH (09:44)
[2017-07-01] MEDS: PANTOPRAZOLE 40 MG TABLET PO SCH (09:45)
[2017-07-01] MEDS ORDERED: POTASSIUM CHLORIDE 20 MEQ TABLET PO ONE (10:00)
[2017-07-01] MEDS: INSULIN REGULAR 100 UNIT/ML SUBCUT SCH ×2 (10:01→11:45)
[2017-07-01 11:47] VITALS: BP 164/72
[2017-07-01] MEDS ORDERED: PROPOFOL 200 MG/20 ML VIAL IV ONE (12:45)
[2017-07-01] MEDS ORDERED: LIDOCAINE 100 MG/5 ML SYRINGE ONE (12:45)
== END 2017-07-01 13:00 | disposition home health service (06) | DRG 378 ==
LOC: N.ED 11:04 → N.EDINP 14:02 → N.2E 14:57
PROVIDERS: ADMIT Family Medicine; ATTEND Family Medicine

== ENCOUNTER 2018-03-31 01:34 | Observation (INO) ==
[2018-03-31 02:37] LABS: Basophils % 0.3 % (0.0-0.8); Eosinophils # 0.2 10*3/uL (0.0-0.87); Eosinophils % 2.6 % (0.00-10.9); Hematocrit 45.2 VOL% (35.7-47.0); Hemoglobin 14.4 GM/DL (12.0-16.0); Immature Granulocytes % 0.3 %; Immature Granulocytes Absolute 0.02 #; Lymphocytes # 1.9 10*3/uL (1.4-4.0); Lymphocytes % 31.2 % (21.3-54.2); Mean Corpuscular HGB Conc 31.9 GM/DL (32-36); Mean Corpuscular Hemoglobin 29 PG (27-34); Mean Corpuscular Volume 90.9 FL (87-102); Mean Platelet Volume 10.4 FL (9.6-12.0); Monocytes # 0.8 10*3/uL (0.11-0.8); Monocytes % 12.5 % (1.7-12.7); Neutrophils # 3.3 10*3/uL (1.4-7.4); Neutrophils % 53.1 % (38.7-73.9); Platelet Count 219 T/CUMM (130-400); Red Blood Count 4.97 MC/CUMM (3.8-5.5); Red Cell Distribution Width 13.5 % (9.3-17.3); White Blood Count 6.2 T/CUMM (4-12)
[2018-03-31 02:41] LABS: Calcium 9.1 MG/DL (8.5-10.1); PT Patient Result 10.8 SECS; Partial Thromboplastin Time 26.6 SECS (0-40); Total Protein 7.2 G/DL (6.4-8.3)
[2018-03-31 02:42] LABS: Albumin 3.5 G/DL (3.4-5.0); Osmolality,Calculated 288.1 MOS/KG (273-304); Potassium 4.1 MMOL/L (3.5-5.1)
[2018-03-31] MEDS ORDERED: CEFEPIME 2,000 MG in SODIUM CHLORIDE 0.9% 100 ML IV STA (04:50)
[2018-03-31] MEDS ORDERED: metroNIDAZOLE INJ 500 MG in PREMIX 1 EACH IV STA (04:52)
[2018-03-31] MEDS ORDERED: CEFEPIME 2,000 MG VIAL ONE (05:02)
[2018-03-31] MEDS ORDERED: SODIUM CHLORIDE 0.9% 100 ML IV ONE (05:03)
[2018-03-31] MEDS ORDERED: SODIUM CHLORIDE 0.9% 1,000 ML IV PRN (05:20)
[2018-03-31] MEDS ORDERED: ONDANSETRON 4 MG/2 ML VIAL IV PRN (05:22)
[2018-03-31] MEDS ORDERED: ACETAMINOPHEN 325 MG TABLET PO PRN (05:22)
[2018-03-31] MEDS ORDERED: DEXTROSE 50% 25 GM/50 ML SYRINGE IV PRN (05:50)
[2018-03-31] MEDS ORDERED: GLUCAGON 1 MG VIAL IM PRN (05:50)
[2018-03-31] MEDS: cefTRIAXone 2,000 MG in SYRINGE 1 EACH IV SCH (06:44)
[2018-03-31] MEDS: INSULIN REGULAR 100 UNIT/ML SUBCUT SCH ×3 (06:51→18:32)
[2018-03-31] MEDS ORDERED: INFLUENZA VIRUS VACCINE 0.5 ML SYRINGE IM ONE (07:51)
[2018-03-31 08:00] LABS: Hematocrit 36.7 VOL% (35.7-47.0)
[2018-03-31 08:03] LABS: Hemoglobin 11.7 GM/DL (12.0-16.0)
[2018-03-31] MEDS: CARVEDILOL 12.5 MG TABLET PO SCH ×2 (12:35→21:18)
[2018-03-31] MEDS: metroNIDAZOLE INJ 500 MG in PREMIX 1 EACH IV SCH ×2 (12:35→21:16)
[2018-03-31] MEDS: PANTOPRAZOLE 40 MG TABLET PO SCH (12:35)
[2018-03-31] MEDS: LISINOPRIL 10 MG TABLET PO SCH (12:35)
[2018-03-31 13:58] LABS: Hematocrit 33.1 VOL% (35.7-47.0); Hemoglobin 10.5 GM/DL (12.0-16.0)
[2018-03-31 20:18] LABS: Hematocrit 32.1 VOL% (35.7-47.0); Hemoglobin 10.4 GM/DL (12.0-16.0)
[2018-03-31] MEDS ORDERED: ATORVASTATIN 10 MG TABLET PO SCH (21:00)
[2018-03-31] MEDS: FAMOTIDINE 20 MG TABLET PO SCH (21:17)
[2018-04-01] MEDS: INSULIN REGULAR 100 UNIT/ML SUBCUT SCH ×3 (00:05→12:09)
[2018-04-01 01:32] LABS: Basophils % 0.3 % (0.0-0.8); Eosinophils # 0.1 10*3/uL (0.0-0.87); Eosinophils % 1.3 % (0.00-10.9); Hematocrit 33.8 VOL% (35.7-47.0); Hemoglobin 10.6 GM/DL (12.0-16.0); Immature Granulocytes % 0.2 %; Immature Granulocytes Absolute 0.01 #; Lymphocytes # 1.7 10*3/uL (1.4-4.0); Lymphocytes % 27.1 % (21.3-54.2); Mean Corpuscular HGB Conc 31.4 GM/DL (32-36); Mean Corpuscular Hemoglobin 28 PG (27-34); Mean Corpuscular Volume 89.9 FL (87-102); Mean Platelet Volume 9.8 FL (9.6-12.0); Monocytes # 0.7 10*3/uL (0.11-0.8); Monocytes % 11.7 % (1.7-12.7); Neutrophils # 3.8 10*3/uL (1.4-7.4); Neutrophils % 59.4 % (38.7-73.9); Platelet Count 163 T/CUMM (130-400); Red Blood Count 3.76 MC/CUMM (3.8-5.5); Red Cell Distribution Width 13.4 % (9.3-17.3); White Blood Count 6.3 T/CUMM (4-12)
[2018-04-01 01:51] LABS: Calcium 7.9 MG/DL (8.5-10.1); Osmolality,Calculated 283.1 MOS/KG (273-304); Potassium 3.6 MMOL/L (3.5-5.1)
[2018-04-01] MEDS: metroNIDAZOLE INJ 500 MG in PREMIX 1 EACH IV SCH ×2 (04:43→12:13)
[2018-04-01] MEDS: cefTRIAXone 2,000 MG in SYRINGE 1 EACH IV SCH (05:49)
[2018-04-01] MEDS: LISINOPRIL 10 MG TABLET PO SCH (09:13)
[2018-04-01] MEDS: FAMOTIDINE 20 MG TABLET PO SCH (09:13)
[2018-04-01] MEDS: CARVEDILOL 12.5 MG TABLET PO SCH (09:13)
[2018-04-01] MEDS: PANTOPRAZOLE 40 MG TABLET PO SCH (09:13)
[2018-04-01] MEDS ORDERED: GLUCAGON 1 MG VIAL IM PRN (11:36)
[2018-04-01] MEDS ORDERED: DEXTROSE 50% 25 GM/50 ML VIAL IV PRN (11:36)
[2018-04-01 17:11] VITALS: BP 130/80
== END 2018-04-01 17:05 | disposition home or self-care (01) ==
LOC: N.EDINP 01:34 → N.ED 01:34 → N.3E 05:53
PROVIDERS: ADMIT Internal Medicine; ATTEND Internal Medicine

== ENCOUNTER 2018-10-23 17:34 | Inpatient (IN) ==
[2018-10-23 18:19] LABS: Basophils % 0.3 % (0.0-0.8); Eosinophils # 0.1 10*3/uL (0.0-0.87); Eosinophils % 1.6 % (0.00-10.9); Hemoglobin 14.5 GM/DL (12.0-16.0); Immature Granulocytes % 0.3 %; Immature Granulocytes Absolute 0.02 #; Lymphocytes # 1.1 10*3/uL (1.4-4.0); Lymphocytes % 17.3 % (21.3-54.2); Mean Corpuscular HGB Conc 32.2 GM/DL (32-36); Mean Corpuscular Volume 91.3 FL (87-102); Mean Platelet Volume 9.8 FL (9.6-12.0); Neutrophils % 69.5 % (38.7-73.9); Platelet Count 213 T/CUMM (130-400); Red Blood Count 4.93 MC/CUMM (3.8-5.5); White Blood Count 6.2 T/CUMM (4-12)
[2018-10-23 18:36] LABS: Albumin 3.5 G/DL (3.4-5.0); Bilirubin,Total 1.1 MG/DL (0.2-1.0); Calcium 8.8 MG/DL (8.5-10.1); Osmolality,Calculated 288.5 MOS/KG (273-304); Total Protein 7.1 G/DL (6.4-8.3)
[2018-10-23] MEDS ORDERED: NICOTINE 21 MG/24 HR PATCH TRANSDERM PRN (21:40)
[2018-10-23] MEDS ORDERED: ONDANSETRON 4 MG/2 ML VIAL IV PRN (21:40)
[2018-10-23] MEDS ORDERED: ACETAMINOPHEN 325 MG TABLET PO PRN (21:40)
[2018-10-23] MEDS ORDERED: MORPHINE 4 MG/1 ML VIAL IV PRN (21:40)
[2018-10-23] MEDS ORDERED: GLUCAGON 1 MG VIAL IM PRN (21:42)
[2018-10-23] MEDS ORDERED: DEXTROSE 50% 25 GM/50 ML VIAL IV PRN (21:42)
[2018-10-23] MEDS ORDERED: PANTOPRAZOLE 40 MG VIAL IV SCH (22:00)
[2018-10-23] MEDS: SODIUM CHLORIDE 0.9% 1,000 ML IV SCH (22:59)
[2018-10-24 01:17] LABS: Apearance,Urine CLEAR (Clear); Bilirubin,Urine Negative (Negative); Blood, Urine Moderate mg/dL (Negative); Glucose,Urine (UA) >=500 mg/dL (Negative); Ketones,Urine 20 mg/dL (Negative); Nitrite,Urine Negative (Negative); Protein,Urine Negative; RBC,Urine 1 /HPF (0-4); Squamous Epithelial Cell,Urine Occasional /HPF (0-10); Urine Color Yellow (Yellow); Urine Specific Gravity 1.025 (1.001-1.035); Urine Urobilinogen < 2.0 EU/DL (0.2-1.0); WBC,Urine 2 /HPF (0-6)
[2018-10-24 06:09] LABS: Basophils % 0.4 % (0.0-0.8); Eosinophils # 0.2 10*3/uL (0.0-0.87); Eosinophils % 1.9 % (0.00-10.9); Hematocrit 40.7 VOL% (35.7-47.0); Hemoglobin 13.2 GM/DL (12.0-16.0); Immature Granulocytes % 0.4 %; Immature Granulocytes Absolute 0.03 #; Lymphocytes # 2.6 10*3/uL (1.4-4.0); Lymphocytes % 31.3 % (21.3-54.2); Mean Corpuscular HGB Conc 32.4 GM/DL (32-36); Mean Corpuscular Volume 90.8 FL (87-102); Mean Platelet Volume 9.7 FL (9.6-12.0); Monocytes % 12.3 % (1.7-12.7); Neutrophils % 53.7 % (38.7-73.9); Platelet Count 211 T/CUMM (130-400); Red Blood Count 4.48 MC/CUMM (3.8-5.5); White Blood Count 8.2 T/CUMM (4-12)
[2018-10-24 06:42] LABS: Albumin 3.2 G/DL (3.4-5.0); Bilirubin,Total 1.4 MG/DL (0.2-1.0); Calcium 8.6 MG/DL (8.5-10.1); Osmolality,Calculated 288.1 MOS/KG (273-304); Total Protein 6.3 G/DL (6.4-8.3)
[2018-10-24] MEDS: SODIUM CHLORIDE 0.9% 1,000 ML IV SCH ×3 (06:53→18:15)
[2018-10-24] MEDS: CARVEDILOL 12.5 MG TABLET PO SCH ×2 (09:37→21:04)
[2018-10-24] MEDS: ATORVASTATIN 10 MG TABLET PO SCH (09:37)
[2018-10-24] MEDS: PANTOPRAZOLE 40 MG TABLET PO SCH (09:37)
[2018-10-24] MEDS: LISINOPRIL 10 MG TABLET PO SCH (09:37)
[2018-10-24] MEDS: INSULIN REGULAR 100 UNIT/ML SUBCUT SCH ×4 (09:38→21:03)
[2018-10-24] MEDS: INSULIN GLARGINE 100 UNIT/ML SUBCUT SCH (21:03)
[2018-10-24] MEDS: sitaGLIPtin 25 MG TABLET PO SCH (21:04)
[2018-10-25] MEDS: SODIUM CHLORIDE 0.9% 1,000 ML IV SCH ×3 (05:26→16:00)
[2018-10-25 05:34] LABS: Basophils % 0.2 % (0.0-0.8); Eosinophils # 0.1 10*3/uL (0.0-0.87); Eosinophils % 2.2 % (0.00-10.9); Hematocrit 32.6 VOL% (35.7-47.0); Immature Granulocytes % 0.6 %; Immature Granulocytes Absolute 0.03 #; Lymphocytes # 1.7 10*3/uL (1.4-4.0); Lymphocytes % 31.6 % (21.3-54.2); Mean Corpuscular HGB Conc 32.5 GM/DL (32-36); Mean Corpuscular Volume 91.3 FL (87-102); Mean Platelet Volume 10.1 FL (9.6-12.0); Monocytes % 12.1 % (1.7-12.7); Neutrophils % 53.3 % (38.7-73.9); Platelet Count 170 T/CUMM (130-400); Red Cell Distribution Width 13.2 % (9.3-17.3)
[2018-10-25 05:36] LABS: Hemoglobin 10.6 GM/DL (12.0-16.0); Red Blood Count 3.57 MC/CUMM (3.8-5.5); White Blood Count 5.4 T/CUMM (4-12)
[2018-10-25 05:53] LABS: Osmolality,Calculated 286.7 MOS/KG (273-304)
[2018-10-25] MEDS: INSULIN REGULAR 100 UNIT/ML SUBCUT SCH ×4 (07:37→20:51)
[2018-10-25] MEDS ORDERED: MAGNESIUM SULF RIDER 2 GM in PREMIX 1 EACH IV PRN (08:25)
[2018-10-25] MEDS ORDERED: MAGNESIUM SULF RIDER 4 GM in PREMIX 1 EACH IV PRN (08:25)
[2018-10-25] MEDS: CARVEDILOL 12.5 MG TABLET PO SCH ×2 (09:16→20:52)
[2018-10-25] MEDS: ATORVASTATIN 10 MG TABLET PO SCH (09:16)
[2018-10-25] MEDS: PANTOPRAZOLE 40 MG TABLET PO SCH (09:16)
[2018-10-25] MEDS: LISINOPRIL 10 MG TABLET PO SCH (09:16)
[2018-10-25] MEDS: POTASSIUM CHLORIDE 20 MEQ TABLET PO PRN ×3 (09:24→14:53)
[2018-10-25] MEDS: sitaGLIPtin 25 MG TABLET PO SCH (20:51)
[2018-10-25] MEDS: INSULIN GLARGINE 100 UNIT/ML SUBCUT SCH (20:52)
[2018-10-26] MEDS: SODIUM CHLORIDE 0.9% 1,000 ML IV SCH ×4 (01:10→13:02)
[2018-10-26 05:33] LABS: Basophils % 0.2 % (0.0-0.8); Eosinophils # 0.1 10*3/uL (0.0-0.87); Eosinophils % 2.9 % (0.00-10.9); Immature Granulocytes % 0.4 %; Immature Granulocytes Absolute 0.02 #; Lymphocytes # 1.5 10*3/uL (1.4-4.0); Lymphocytes % 30.6 % (21.3-54.2); Mean Corpuscular HGB Conc 32.3 GM/DL (32-36); Mean Corpuscular Volume 92.8 FL (87-102); Mean Platelet Volume 9.7 FL (9.6-12.0); Monocytes % 13.9 % (1.7-12.7); Platelet Count 162 T/CUMM (130-400); Red Blood Count 3.34 MC/CUMM (3.8-5.5); Red Cell Distribution Width 13.5 % (9.3-17.3); White Blood Count 4.8 T/CUMM (4-12)
[2018-10-26] MEDS: INSULIN REGULAR 100 UNIT/ML SUBCUT SCH ×4 (07:38→21:31)
[2018-10-26] MEDS: PANTOPRAZOLE 40 MG TABLET PO SCH (08:51)
[2018-10-26] MEDS: ATORVASTATIN 10 MG TABLET PO SCH (08:51)
[2018-10-26] MEDS: LISINOPRIL 10 MG TABLET PO SCH (08:51)
[2018-10-26] MEDS: CARVEDILOL 12.5 MG TABLET PO SCH ×2 (08:51→21:31)
[2018-10-26] MEDS: sitaGLIPtin 25 MG TABLET PO SCH (21:31)
[2018-10-26] MEDS: INSULIN GLARGINE 100 UNIT/ML SUBCUT SCH (21:32)
[2018-10-26 23:16] VITALS: BP 153/79
== END 2018-10-27 00:25 | disposition home or self-care (01) | DRG 378 ==
LOC: N.EDINP 17:34 → N.ED 17:34 → SUATTDRO 21:40 → N.5E 22:45
PROVIDERS: ADMIT Internal Medicine Cardiovascular Disease; ATTEND Internal Medicine Nephrology